=== PATIENT | female | born 1995 | race Caucasian/White ===

== ENCOUNTER 2018-02-01 10:39 | Observation (INO) | payer BC ==
--- NOTE | 2018-02-01 11:03 | EDPHY ---
H & P Time Seen by Provider: 02/01/18 10:45 HPI/ROS: CHIEF COMPLAINT: Chills and skin redness HISTORY OF PRESENT ILLNESS: Right nipple piercing in July, presents with 2 days of skin rash followed by a 24 hr of fever and chills and mild headache. Presents today with red rash over her right breast near nipple, associated with fever and body aches. Little bit of a headache. Symptoms moderate. Not better worse with anything. REVIEW OF SYSTEMS: Eye: no change in vision ENT: no sore throat Cardiac: no chest pain or syncope Pulmonary: no cough or SOB Abdomen: no vomiting, diarrhea, abdominal pain Musculoskeletal: no back pain Skin: HPI Neuro: HPI Constitutional: HPI : no urinary symptoms A comprehensive 10 point review of systems is otherwise negative aside from elements mentioned in the history of present illness. PAST MEDICAL HISTORY: Negative specifically no diabetes Social history: No IV drug abuse General Appearance: Alert and conversant, cooperative. Eyes: No scleral icterus. ENT, Mouth: Normal mucous membranes. Respiratory: Normal respiratory effort, breath sounds equal, lungs are clear to auscultation. Cardiovascular: Regular rate and rhythm. Gastrointestinal: Abdomen is soft and non tender. Neurological: Alert, face symmetric, normal motor and sensory in extremities. Skin: Patient has several areas of rash less than 1 cm on her right upper chest which look like staff a coccal pustules. There is erythema on the inferior or superior quadrant of her right breast with the nipple piercing exists that is tender and warm to the touch. Musculoskeletal: No peripheral edema. Psychiatric: Not agitated. Emergency Department course/MDM: Patient presents with right chest wall breast cellulitis and tachycardia and fever. Blood cultures, IV antibiotics, lactate screening. Vancomycin 1 g IV. This is chosen because of the pustules on her chest wall suggesting high likelihood of staphylococcal cellulitis. Negative lactate. Smoking Status: Never smoked Constitutional: Initial Vital Signs Temperature (C) 38 C 02/01/18 10:42 Heart Rate 124 H 02/01/18 10:42 Respiratory Rate 18 02/01/18 10:42 Blood Pressure 110/77 02/01/18 10:42 O2 Sat (%) 95 02/01/18 10:42 O2 Delivery Mode Room Air Allergies/Adverse Reactions: No Known Allergies Allergy (Unverified 02/01/18 10:41) Home Medications: Medication Instructions Recorded Levonorgestrel [Mirena] 1 each IY AD 02/01/18 Medical Decision Making Differential Diagnosis: Differential considered including but not limited to abscess, urticaria, fasciitis, cellulitis. Consult/Admit Bed Type: [facility] for Dr. Bliss 7278 - Data Points Laboratory Results: Laboratory Results 02/01/18 11:22 02/01/18 11:22 02/01/18 02/01/18 02/01/18 11:22 11:22 11:22 WBC 15.68 10^3/uL H 10^3/uL (3.80-9.50) RBC 4.77 10^6/uL 10^6/uL (4.18-5.33) Hgb 14.7 g/dL g/dL (12.6-16.3) Hct 43.7 % % (38.0-47.0) MCV 91.6 fL fL (81.5-99.8) MCH 30.8 pg pg (27.9-34.1) MCHC 33.6 g/dL g/dL (32.4-36.7) RDW 11.9 % % (11.5-15.2) Plt Count 296 10^3/uL 10^3/uL (150-400) MPV 10.3 fL fL (8.7-11.7) Neut % (Auto) 84.8 % H % (39.3-74.2) Lymph % (Auto) 6.3 % L % (15.0-45.0) [place] % (Auto) 8.0 % % (4.5-13.0) Eos % (Auto) 0.0 % L % (0.6-7.6) Baso % (Auto) 0.3 % % (0.3-1.7) Nucleat RBC Rel Count 0.0 % % (0.0-0.2) Absolute Neuts (auto) 13.30 10^3/uL H 10^3/uL (1.70-6.50) Absolute Lymphs (auto) 0.99 10^3/uL L 10^3/uL (1.00-3.00) Absolute Monos (auto) 1.25 10^3/uL H 10^3/uL (0.30-0.80) Absolute Eos (auto) 0.00 10^3/uL L 10^3/uL (0.03-0.40) Absolute Basos (auto) 0.05 10^3/uL 10^3/uL (0.02-0.10) Absolute Nucleated RBC 0.00 10^3/uL 10^3/uL (0-0.01) Immature Gran % 0.6 % % (0.0-1.1) Immature Gran # 0.09 10^3/uL 10^3/uL (0.00-0.10) PT 15.1 SEC H SEC (12.0-15.0) INR 1.17 H (0.83-1.16) APTT 30.9 SEC SEC (23.0-38.0) VBG Lactic Acid 1.2 mmol/L mmol/L (0.7-2.1) Sodium Potassium Chloride Carbon Dioxide Anion Gap BUN Creatinine Estimated GFR Glucose Calcium Total Bilirubin Conjugated Bilirubin Unconjugated Bilirubin 02/01/18 11:22 WBC RBC Hgb Hct MCV MCH MCHC RDW Plt Count MPV Neut % (Auto) Lymph % (Auto) [place] % (Auto) Eos % (Auto) Baso % (Auto) Nucleat RBC Rel Count Absolute Neuts (auto) Absolute Lymphs (auto) Absolute Monos (auto) Absolute Eos (auto) Absolute Basos (auto) Absolute Nucleated RBC Immature Gran % Immature Gran # PT INR APTT VBG Lactic Acid Sodium 138 mEq/L mEq/L (135-145) Potassium 3.6 mEq/L mEq/L (3.3-5.0) Chloride 101 mEq/L mEq/L (97-110) Carbon Dioxide 20 mEq/l L mEq/l (22-31) Anion Gap 17 mEq/L H mEq/L (8-16) BUN 10 mg/dL mg/dL (7-23) Creatinine 0.8 mg/dL mg/dL (0.6-1.0) Estimated GFR > 60 Glucose 96 mg/dL mg/dL (70-100) Calcium 9.3 mg/dL mg/dL (8.5-10.4) Total Bilirubin 3.1 mg/dL H mg/dL (0.1-1.4) Conjugated Bilirubin 0.4 mg/dL mg/dL (0.0-0.5) Unconjugated Bilirubin 2.7 mg/dL H mg/dL (0.0-1.1) Medications Given: Discontinued Medications Acetaminophen (Tylenol) 1,000 mg PO ONCE ONE Stop: 02/01/18 12:18 Last Admin: 02/01/18 12:24 Dose: 1,000 mg Sodium Chloride (Ns) 1,800 mls @ 3,600 mls/hr 30 ml/kg infuse over 30 min ( 1800 ml) IV EDNOW ONE PRN Reason: Protocol Stop: 02/01/18 11:33 Last Admin: 02/01/18 12:09 Dose: 1,800 mls Vancomycin/Sodium Chloride (Vancomycin 1 Gm (Premix)) 250 mls @ 250 mls/hr IV EDNOW ONE PRN Reason: Protocol Stop: 02/01/18 12:03 Last Admin: 02/01/18 12:10 Dose: 250 mls Departure - Departure Disposition: [facility] Inpatient Acute Clinical Impression: Cellulitis of right breast Condition: Good
[2018-02-01] MEDS ORDERED: NS 1,800 ML IV ONE (11:04)
[2018-02-01] MEDS ORDERED: VANCOMYCIN HCL/NORMAL SALINE 250 ML IV ONE (11:04)
[2018-02-01 11:31] LABS: PLATELET COUNT 296 10^3/uL (150-400)
[2018-02-01 11:40] LABS: INR 1.17 (0.83-1.16); PROTIME(PATIENT) 15.1 SEC (12.0-15.0)
[2018-02-01] MEDS ORDERED: ACETAMINOPHEN 500 MG TAB PO ONE (12:17)
[2018-02-01] MEDS ORDERED: ACETAMINOPHEN 500 MG TAB ONE (12:21)
[2018-02-01] MEDS ORDERED: LEVONORGESTREL IY SCH (15:15)
[2018-02-01] MEDS ORDERED: ONDANSETRON 4 MG/2 ML VIAL IVP PRN (15:23)
[2018-02-01] MEDS ORDERED: ACETAMINOPHEN 325 MG TAB PO PRN (15:23)
[2018-02-01] MEDS ORDERED: IBUPROFEN 600 MG TAB PO PRN (15:23)
[2018-02-01] MEDS ORDERED: PROMETHAZINE HCL 25 MG/ML INJ IVP PRN (15:23)
--- NOTE | 2018-02-01 17:30 | GHP ---
[f rep st] HISTORY AND PHYSICAL DATE OF ADMISSION: 02/01/2018 CHIEF COMPLAINT: Right breast infection. HISTORY: The patient is a 22-year-old female who had a nipple piercing in July. She did fine wit h it until 1 week ago when she developed increasing rash. She also has small pustules that have deve loped on her arms and torso that have drained clear fluid. She has had a fever to 38.5. She was sta rted on IV vancomycin in the emergency room. She developed hives on her torso and upper legs during the vancomycin administration, as well as a very bright red skin rash consistent with possible red ma n syndrome versus allergic reaction; that has now all completely resolved. PAST MEDICAL HISTORY: Negative. MEDICATIONS: None. ALLERGIES: No known drug allergies. SOCIAL HISTORY: No smoking. She drinks alcohol on weekends. She smokes marijuana. She is a [employer]. She is originally from [place]. 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 REVIEW OF SYSTEMS: Complete review of systems obtained. Review of systems negative regarding consti tutional, HEENT, GI, pulmonary, cardiovascular, , hematologic, endocrine, psych, except for positiv es and negatives as in HPI. FAMILY HISTORY: Reviewed and noncontributory to presenting complaint. PHYSICAL EXAMINATION: GENERAL: Well-developed, well-nourished female, in no distress. VITAL SIGNS: Temperature 38.4, pulse 124, blood pressure 117/73, saturating 95% on room air. EYES: Normal conj unctivae. Pupils equal and reactive to light. ENT: Normal ears and nose. Hearing intact. Normal lips and teeth. Oropharynx moist. NECK: Trachea midline. No thyromegaly. CHEST: Normal. Lungs clear to auscultation bilaterally. CARDIOVASCULAR: Regular rate and rhythm. No murmur. No lower ex tremity edema. ABDOMEN: Soft, nontender. No hepatosplenomegaly. SKIN: Her right breast nipple ri ng has been removed. There is some patchy erythema extending down the breast with right breast swell ing. She has distant papules on her upper extremities, torso, and neck. None of them are draining a purulent fluid. There seems to be some mild clear discharge. MUSCULOSKELETAL: No cyanosis or club stormy. Strength is 5/5, upper and lower extremities. NEUROLOGIC: Cranial nerves intact. Normal sen sation to light touch. PSYCH: Alert and oriented x3. Normal mood and affect. Normal judgment and insight. Normal memory. LABORATORY DATA: White count 15.68, hematocrit 43.7, platelets 296, sodium 138, potassium 3.6, chlor deejay 101, bicarb 20, BUN 10, creatinine 0.8, glucose 96. Beta hCG is negative. Lactate is 1.2. INR is 1.17. This case was discussed with Dr. Monica Benavides regarding antibiotic selection choice. ASSESSMENT/PLAN: 1. Right breast cellulitis at a site of previous nipple piercing. The pustules suggest possible sta ph infection. She possibly had a hive-like reaction to the IV vancomycin reported by nursing, greta gh it is not currently present for me to inspect. I have spoken with Dr. 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 Will, therefore, change to IV Ancef, which will cover methicillin-susceptible Staphylococ cus aureus and re-evaluate tomorrow. Will culture one of the pustules to see if methicillin-resistan t Staphylococcus aureus is seen. 2. Sepsis as evidenced by fever, leukocytosis and tachycardia. She is not toxic appearing, however. Blood cultures are pending. Lactate is okay. 3. Increased liver function tests. This may be Gilbert's. Will recheck liver function tests in the morning. COR STATUS: Full. ADMISSION STATUS: 1. Will admit to observation. Reevaluate tomorrow regarding ongoing need for hospitalization. 2. DVT prophylaxis. She is low risk. /[id number]/MODL
[2018-02-02 05:25] LABS: PLATELET COUNT 257 10^3/uL (150-400)
[2018-02-02 06:50] LABS: HIV TYPE 1 AND 2 NEGATIVE (NEGATIVE)
[2018-02-02 13:28] VITALS: BP 124/71
--- NOTE | 2018-02-02 18:10 | GDS ---
[f rep st] DISCHARGE SUMMARY DISCHARGE DIAGNOSES: 1. Cellulitis of the right breast due to nipple piercing. 2. Possible allergic reaction to IV vancomycin. 3. Sepsis. HISTORY: Heather is a 22-year-old female who had her nipples pierced in July. They were fine until 1 week ago when she developed increasing rash around the right breast. She had swelling and erythema of the breast as well as some distant satellite pustules on her arms and torso. She had a fever to 38.5 and leukocytosis. She presented to the emergency room and was given a dose IV vancomycin, but s he developed red man syndrome as well as possible hive-like reaction. It was unclear if this was an allergic reaction. I spoke with Dr. Benavides of Infectious Disease. She reports that [facility] are quite [facility]. She did not think she needed empiric coverage. We switched her t o IV Ancef. She improved overnight, and is okay to switch to oral antibiotics. I will discharge her on a course of Keflex. She knows to return to the hospital if the cellulitis does not resolve. DISCHARGE MEDICATIONS: Please see computer record for full detailed list. NEW MEDICATIONS: Keflex 500 mg p.o. three times daily x7 days. ADDITIONAL DISCHARGE INSTRUCTIONS: Return to emergency room Urgent Care if the cellulitis does not i osmin. Patient was seen and examined by me on day of discharge. /[id number]/MODL
== END 2018-02-02 14:36 | disposition home or self-care (01) ==
LOC: INTOOBSV 11:38 → FOB 13:34 → F1N 18:02
PROVIDERS: ADMIT Internal Medicine; ATTEND Internal Medicine
DX: N61.0 Mastitis without abscess (principal); A41.9 Sepsis, unspecified organism; R51 Headache
CPT/HCPCS: G0378 ×2; J0690; J3370